=== PATIENT | female | born 1955 | race Two or more races ===

== ENCOUNTER 2018-10-09 12:38 | Emergency (ER) | payer OTHER ==
[~2018-10-09] VITALS: Ht 162.6 cm; Wt 72.6 kg
--- NOTE | 2018-10-09 12:39 | NUR ---
ED Nurse Note: patient is 62year old female, from her family's home lives with her family from [facility] visiting from holidays, she stated she hit her head and right elbow as she had mechanical fall. fore head lac right elbow abrasion family in the waiting room no medical hx, not taking any med no loss of conscisousness ambulatory
[2018-10-09 12:41] VITALS: BP 158/72
[2018-10-09] MEDS ORDERED: Tetanus/Diptheria/Pertussis Vaccine 0.5ml Syr IM ONE (12:45)
--- NOTE | 2018-10-09 12:46 | NUR ---
[id number]
--- NOTE | 2018-10-09 13:39 | Diagnostic Imaging Report ---
Indication: Headache Technique: Contiguous 5 mm thick transaxial imaging of the head obtained in a Siemens Sensation [address] scanner. Soft tissue and bone windows generated. Automatic Exposure Control was utilized. Total Dose length Product (DLP): 1965.[address] Dose Index Volume (CTDIvol): 70.38,28.19 mGy Comparison: none Findings: There is very mild prominence of the ventricles, basal cisterns, and cerebral sulci consistent with atrophy. Mild, nonspecific, white matter hypoattenuation is noted throughout the brain consistent with chronic small vessel disease. There is no midline shift, edema, acute hemorrhage, mass effect, or abnormal extra-axial fluid collections. The calvarium is intact. There is a moderate size cephalohematoma over the right frontal region. Impression: No acute intracranial bleed, mass effect or edema. Minimal atrophy of the brain. Nonspecific white matter hypoattenuation probably due to chronic small vessel disease. Right frontal cephalohematoma The CT scanner at [facility] is accredited by the [employer] and the scans are performed using dose optimization techniques as appropriate to a performed exam including Automatic Exposure control.
--- NOTE | 2018-10-09 13:49 | Diagnostic Imaging Report ---
Indication: Head trauma. Fall Technique: Continuous helical transaxial imaging of the maxillofacial structures obtained without intravenous contrast administration. Coronal 2-D reformats were also obtained. Study obtained in a Siemens sensation [address] Automatic Exposure Control was utilized. Total Dose length Product (DLP): Refer to CT head mGycm CT Dose Index Volume (CTDIvol): Refer to CT head mGy Comparison: None Findings: There is no evidence of an acute fracture. Paranasal sinuses and mastoids are clear. Soft tissues are unremarkable. There is a fixation screw in the left aspect of the maxilla. Orbits appear normal. There is a right frontal supraorbital cephalohematoma. IMPRESSION: No acute fracture The CT scanner at [facility] is accredited by the [employer] and the scans are performed using dose optimization techniques as appropriate to a performed exam including Automatic Exposure control.
[2018-10-09] MEDS ORDERED: Lidocaine 1% Plain 30 ml INJ ONE (14:15)
[2018-10-09] MEDS ORDERED: Bacitracin Oint UD TOPIC ONE (15:00)
[2018-10-09] MEDS ORDERED: BACITRACIN15 GM TOPIC (15:03)
[2018-10-09] MEDS ORDERED: TYLENOL EXTRA500 MG ORAL (15:03)
--- NOTE | 2018-10-09 15:12 | Emergency Room Report ---
History of Present Illness General Chief Complaint: Multiple Trauma/Fall Source: Patient Present Illness HPI 62-year-old female presents ED for evaluation. Patient brought in by EMS status post fall. Tripped and fell today hitting her head. LOC. Bleeding from her forehead. Tetanus unknown. Denies pain. Denies nausea or vomiting. Denies photophobia or blurry vision. Denies chest pain or shortness of breath or dizziness. No other aggravating relieving factors. Denies any other associated symptoms Allergies: Coded Allergies: No Known Allergies (Unverified , 10/09/18) Patient History Past Medical History: none Past Surgical History: none Pertinent Family History: none Social History: Denies: smoking, alcohol use, drug use Now: No Immunizations: UTD Reviewed Nursing Documentation: PMH: Agreed; PSxH: Agreed Nursing Documentation-PMH Past Medical History: No Stated History Review of Systems All Other Systems: negative except mentioned in HPI Physical Exam Vital Signs Date Time Temp Pulse Resp B/P (MAP) Pulse Ox O2 Delivery O2 Flow Rate FiO2 10/09/18 12:36 98.1 80 16 158/72 98 Room Air Sp02 EP Interpretation: reviewed, normal General Appearance: no apparent distress, alert, GCS 15, non-toxic Head: normocephalic, atraumatic Eyes: bilateral eye normal inspection, bilateral eye PERRL, bilateral eye EOMI ENT: hearing grossly normal, normal pharynx, no angioedema, normal voice Neck: full range of motion, supple/symm/no masses Respiratory: chest non-tender, lungs clear, normal breath sounds, speaking full sentences Cardiovascular #1: regular rate, rhythm, no edema Cardiovascular #2: 2+ carotid (R), 2+ carotid (L), 2+ radial (R), 2+ radial (L) , 2+ dorsalis pedis (R), 2+ dorsalis pedis (L) Gastrointestinal: normal bowel sounds, non tender, soft, non-distended, no guarding, no rebound Rectal: deferred Genitourinary: normal inspection, no CVA tenderness Musculoskeletal: back normal, gait/station normal, normal range of motion, non- tender Neurologic: alert, oriented x3, responsive, motor strength/tone normal, sensory intact, speech normal Psychiatric: judgement/insight normal, memory normal, mood/affect normal, no suicidal/homicidal ideation Reflexes: 3+ bicep (R), 3+ bicep (L), 3+ tricep (R), 3+ tricep (L), 3+ knee (R) , 3+ knee (L) Skin: normal color, warm/dry, well hydrated, laceration - 4cm stellate laceration to R forehead Lymphatic: no adenopathy Procedures Laceration/Wound Repair Laceration/Wound Repair : Consent: Verbal Wound Location: head Wound's Depth, Shape: stellate Wound Explored: clean Betadine Prep?: Yes Anesthesia: 1% Lidocaine Wound Debrided: minimal Wound Repaired With: sutures Suture Size/Type: 6:0, proline Layer Closure?: No Sterile Dressing Applied?: Yes Splint Applied?: No Sling Applied?: No Patient Tolerated: Well Complications: None Medical Decision Making Diagnostic Impression: Primary Impression: Laceration of head Qualified Codes: S01.91XA - Laceration without foreign body of unspecified part of head, initial encounter Additional Impression: Fall Qualified Codes: W19.XXXA - Unspecified fall, initial encounter ER Course Hospital Course 62 yo F presents with laceration to head s/p trip and fall. no LOC Differential diagnoses include: skull fx, intracranial injury, concussion Clinical course Patient placed on stretcher. After initial history and physical I ordered, TDAP , CT head and facial bones CT head/facial bones shows no acute process. Wound irrigated. Stellate laceration repaired. Bacitracin and dressing applied. Discussed findings with patient. Safe for discharge. Return here in 5-7 days for suture removal. Patient states she'll follow-up with her PMD Diagnosis - laceration of head, fall Stable and discharged to home with Rx tylenol, bacitracin. wound care instructions given. return to ED for suture removal. Return to ED if symptoms recur or worsen CT/MRI/US Diagnostic Results CT/MRI/US Diagnostic Results #1: Imaging Test Ordered: CT Head Impression no acute process CT/MRI/US Diagnostic Results #2: Imaging Test Ordered: CT Facial Bones Impression no acute process Last Vital Signs Date Time Temp Pulse Resp B/P (MAP) Pulse Ox O2 Delivery O2 Flow Rate FiO2 10/09/18 12:41 98.1 80 16 158/72 98 Room Air Status: improved Disposition: HOME, SELF-CARE Condition: Stable Scripts Acetaminophen* (TYLENOL EXTRA STRENGTH*) 500 Mg Tablet 500 MG ORAL Q8H PRN for Prn Headache/Temp > 101, #30 TAB 0 Refills Prov: Bartolo Beck MD 10/09/18 Bacitracin (Bacitracin) 28.4 Gm Oint...g. 1 APPLIC TOPIC THREE TIMES A DAY, #28.4 GM Prov: Bartolo Beck MD 10/09/18 Patient Instructions: Laceration Care, Adult, [id number] Additional Instructions: return to ED in 5-7 days for suture removal Bartolo Beck MD Oct 09, 2018 15:12
[2018-10-09 15:20] VITALS: BP 133/79
--- NOTE | 2018-10-09 15:20 | NUR ---
ED Nurse Note: Pt is clear to be discharged by ERMD. Discharge paper and prescription given, pt verbalized understanding of discharge instruction. AOx4, VSS. Wristband removed. Pt wheeled out to vehicle with all belongings.
== END 2018-10-09 15:23 | disposition home or self-care (01) ==
LOC: EDBD 12:38 → EMR 13:17 → EDBD 13:17 → EMR 15:23
DX: S01.91XA Laceration without foreign body of unspecified part of head, initial encounter (principal); W01.0XXA Fall on same level from slipping, tripping and stumbling without subsequent striking against object, initial encounter; Y92.9 Unspecified place or not applicable; Z23 Encounter for immunization
CPT/HCPCS: 12013; 70450; 70486; 90471; 90715; 96374; 99284; J2001